=== PATIENT | male | born 1945 | race Caucasian/White ===

== ENCOUNTER 2016-12-14 07:36 | Day surgery (SDC) | payer MEDICARE, BC ==
[2016-12-13 09:59] VITALS: BMI 26.2
[~2016-12-14 07:36] MED LIST: DEXAMETHASONE SOD PHOSPHATE 10 MG/ML 1 ML VIAL IV ONE; LACTATED RINGERS 1,000 ML IV ONE; LIDOCAINE 1% 20 ML VIAL (10MG/ML) FOR IV START INTRADERMA PRN; MIDAZOLAM 2 MG/2 ML VIAL IV PRN; ONDANSETRON 4 MG/2 ML VIAL IVP ONE; SCOPOLAMINE 1.5MG/72HR PATCH TRANSDERM ONE
[2016-12-14 08:36] VITALS: RESP 18; TEMP 98.1
[2016-12-14] MEDS: CYCLOPENTOLATE 1% OPHTH SOLN 2 ML BTL OP ONE ×3 (08:36→08:54)
[2016-12-14] MEDS: FLURBIPROFEN 0.03% OPHTH DROPS 2.5 ML BTL OP ONE ×3 (08:40→08:56)
[2016-12-14] MEDS: PHENYLEPHRINE 10% OPHTH DROPS 5 ML BTL OP ONE ×3 (08:43→08:58)
[2016-12-14] MEDS ORDERED: LIDOCAINE 1% 20 ML VIAL (10MG/ML) FOR IV START INTRADERMA ONE (08:48)
[2016-12-14] MEDS ORDERED: LIDOCAINE 1% INJ 10MG/ML (20 ML MDV) ONE (08:58)
[2016-12-14] MEDS ORDERED: PROPOFOL 10 MG/ML 20 ML VIAL IV ONE (08:58)
[2016-12-14] MEDS ORDERED: EPINEPHrine (PF) 0.5 ML in BALANCED SALT IRRIG SOLN COMB2 500 ML IRRIGATION ONE (09:07)
[2016-12-14] MEDS ORDERED: HYALURONATE SODIUM INTRAOCULAR 1 EACH SYRINGE (10MG/ML) INTRAOCULA ONE (09:09)
[2016-12-14] MEDS ORDERED: BALANCED SALT IRRIG SOLN COMB2 15 ML IRRIG.SOLN INTRAOCULA ONE (09:09)
[2016-12-14 09:28] VITALS: PULSE 70
--- NOTE | 2016-12-14 09:32 | P.OP ---
Date of Procedure: 12/14/16 Procedure(s) Performed: PREOPERATIVE DIAGNOSIS: Cataract, left eye. POSTOPERATIVE DIAGNOSIS: Cataract, left eye. OPERATION: Phacoemulsification cataract, left eye. DESCRIPTION OF PROCEDURE: The patient was taken to the preoperative holding area. Intravenous Propofol was given so as to bring about adequate sedation. The following mixture was given for local anesthesia: 5 mL of 2% lidocaine, 5 mL of 0.75% Marcaine, and 1 mL of Wydase. Approximately 4 mL was injected in the retrobulbar space of the surgical eye. Additional 1 mL was then directed to the temporal area of the surgical eye. This was performed to allow adequate neurological block of the facial muscles. The patient was revived and then taken into the operative room. The patient was prepped and draped in the usual sterile manner for the operative eye. A lid speculum was put into position. The conjunctiva was resected back from the limbus in the 12 o'clock position. Bleeding was controlled with electrocautery. A #69 blade was then used and a half-thickness scleral incision approximately 1-mm posterior to the limbus was made on bare sclera. This was shelved in the clear cornea using a crescent knife. Next a 15-degree blade was used to make a stab incision at the 3 o' clock position at the corneolimbal interface. Keratome blade was then used and the superior wound was extended into the anterior chamber. Viscoelastic was injected into the anterior chamber and to maintain its form. Next, a cystotome was used and a continuous anterior capsulotomy was made without difficulty. Hydrodissection using a blunt cannula and BSS was performed. Phaco probe was then employed and a groove extending from 12 to 6 o'clock in the lens was created. A Rich wand was used through the stab incision so as to perform a divide and conquer technique. Next an irrigation aspiration probe was utilized and any residual cortex was removed from the eye. Again, viscoelastic was injected into the anterior chamber. An Roland posterior chamber lens implant was placed in the cartridge and injected into the anterior chamber without difficulty. The SinTransGenRxey hook was utilized to spin the lens into position and this was again performed without any difficulty. The irrigation and aspiration probe was again employed and any residual viscoelastic was removed from the eye. Then BSS was injected into the limbal stab incision and the anterior chamber re-inflated. The conjunctiva was reapproximated using electrocautery. One drop of 0.25% Timoptic was placed over the corneal along with TobraDex ophthalmic ointment. Two sterile patches and a Fernandez eye shield were taped into position. The patient was transported to the recovery room in stable condition. Pathology: none sent Condition: stable Disposition: same day
[2016-12-14 09:48] VITALS: BP 127/78
[2016-12-14] MEDS ORDERED: BUPIVACAINE (PF) 0.75% 5 ML, LIDOCAINE 4% (PF) 5 ML, HYALURONIDASE, HUMAN RECOMB 150 UNIT MISCELLANE ONE ×3 (23:00)
[2016-12-14] MEDS ORDERED: GENTAMICIN/PREDNISOL AC OPHTH OINT 3.5GM OPHTHALMIC ONE (23:00)
[2016-12-14] MEDS ORDERED: TIMOLOL 0.5% OPHTH SOLN (PF) 0.2 ML DROPERETTE OP ONE (23:00)
== END 2016-12-14 10:17 | disposition home or self-care (01) ==
LOC: OR 07:36
PROVIDERS: ATTEND Ophthalmology
DX: H26.9 Unspecified cataract (principal); I48.91 Unspecified atrial fibrillation; H40.059 Ocular hypertension, unspecified eye; Z79.82 Long term (current) use of aspirin; Z79.899 Other long term (current) drug therapy; Z95.810 Presence of automatic (implantable) cardiac defibrillator; Z88.5 Allergy status to narcotic agent; Z95.0 Presence of cardiac pacemaker
CPT/HCPCS: 66984; V2632; J2001 ×2; J3470; J0171; J2704; 99152; 99153

== ENCOUNTER 2017-01-18 09:04 | Day surgery (SDC) | payer MEDICARE, BC ==
[2017-01-14 11:42] VITALS: BMI 26.2
[~2017-01-18 09:04] MED LIST changes: +HYDROmorphone 1 MG/ML 1 ML SYRINGE IVP PRN; -LACTATED RINGERS 1,000 ML IV ONE; +LACTATED RINGERS 1,000 ML IV SCH; -LIDOCAINE 1% 20 ML VIAL (10MG/ML) FOR IV START INTRADERMA PRN; -MIDAZOLAM 2 MG/2 ML VIAL IV PRN; -SCOPOLAMINE 1.5MG/72HR PATCH TRANSDERM ONE
[2017-01-18] MEDS: PHENYLEPHRINE 10% OPHTH DROPS 5 ML BTL OP ONE ×3 (09:48→10:08)
[2017-01-18] MEDS: CYCLOPENTOLATE 1% OPHTH SOLN 2 ML BTL OP ONE ×3 (09:51→10:11)
[2017-01-18] MEDS: FLURBIPROFEN 0.03% OPHTH DROPS 2.5 ML BTL OP ONE ×3 (09:55→10:14)
[2017-01-18] MEDS ORDERED: LIDOCAINE 1% 20 ML VIAL (10MG/ML) FOR IV START INTRADERMA ONE (09:59)
[2017-01-18] MEDS ORDERED: LIDOCAINE 1% INJ 10MG/ML (20 ML MDV) ONE (10:36)
[2017-01-18] MEDS ORDERED: PROPOFOL 10 MG/ML 20 ML VIAL IV ONE (10:36)
[2017-01-18 10:39] VITALS: TEMP 97.6
[2017-01-18] MEDS ORDERED: BALANCED SALT IRRIG SOLN COMB2 15 ML IRRIG.SOLN INTRAOCULA ONE (10:39)
[2017-01-18] MEDS ORDERED: EPINEPHrine (PF) 0.5 ML in BALANCED SALT IRRIG SOLN COMB2 500 ML IRRIGATION ONE (10:40)
[2017-01-18] MEDS ORDERED: HYALURONATE SODIUM INTRAOCULAR 1 EACH SYRINGE (10MG/ML) INTRAOCULA ONE (10:40)
--- NOTE | 2017-01-18 11:01 | P.OP ---
Date of Procedure: 01/18/17 Procedure(s) Performed: PREOPERATIVE DIAGNOSIS: Cataract, right eye. POSTOPERATIVE DIAGNOSIS: Cataract, right eye. OPERATION: Phacoemulsification cataract, right eye. DESCRIPTION OF PROCEDURE: The patient was taken to the preoperative holding area. Intravenous Propofol was given so as to bring about adequate sedation. The following mixture was given for local anesthesia: 5 mL of 2% lidocaine, 5 mL of 0.75% Marcaine, and 1 mL of Wydase. Approximately 4 mL was injected in the retrobulbar space of the surgical eye. Additional 1 mL was then directed to the temporal area of the surgical eye. This was performed to allow adequate neurological block of the facial muscles. The patient was revived and then taken into the operative room. The patient was prepped and draped in the usual sterile manner for the operative eye. A lid speculum was put into position. The conjunctiva was resected back from the limbus in the 12 o'clock position. Bleeding was controlled with electrocautery. A #69 blade was then used and a half-thickness scleral incision approximately 1-mm posterior to the limbus was made on bare sclera. This was shelved in the clear cornea using a crescent knife. Next a 15-degree blade was used to make a stab incision at the 3 o' clock position at the corneolimbal interface. Keratome blade was then used and the superior wound was extended into the anterior chamber. Viscoelastic was injected into the anterior chamber and to maintain its form. Next, a cystotome was used and a continuous anterior capsulotomy was made without difficulty. Hydrodissection using a blunt cannula and BSS was performed. Phaco probe was then employed and a groove extending from 12 to 6 o'clock in the lens was created. A Rich wand was used through the stab incision so as to perform a divide and conquer technique. Next an irrigation aspiration probe was utilized and any residual cortex was removed from the eye. Again, viscoelastic was injected into the anterior chamber. An Roland posterior chamber lens implant was placed in the cartridge and injected into the anterior chamber without difficulty. The SinGiftLauncherey hook was utilized to spin the lens into position and this was again performed without any difficulty. The irrigation and aspiration probe was again employed and any residual viscoelastic was removed from the eye. Then BSS was injected into the limbal stab incision and the anterior chamber re-inflated. The conjunctiva was reapproximated using electrocautery. One drop of 0.25% Timoptic was placed over the corneal along with TobraDex ophthalmic ointment. Two sterile patches and a Fernandez eye shield were taped into position. The patient was transported to the recovery room in stable condition. Pathology: none sent Condition: stable Disposition: same day
[2017-01-18 11:29] VITALS: BP 131/75; PULSE 72; RESP 18
[2017-01-18] MEDS ORDERED: GENTAMICIN/PREDNISOL AC OPHTH OINT 3.5GM OPHTHALMIC ONE (23:00)
[2017-01-18] MEDS ORDERED: BUPIVACAINE (PF) 0.75% 5 ML, LIDOCAINE 4% (PF) 5 ML, HYALURONIDASE, HUMAN RECOMB 150 UNIT MISCELLANE ONE ×3 (23:00)
[2017-01-18] MEDS ORDERED: TIMOLOL 0.5% OPHTH SOLN (PF) 0.2 ML DROPERETTE OP ONE (23:00)
== END 2017-01-18 11:45 | disposition home or self-care (01) ==
LOC: OR 09:04
PROVIDERS: ATTEND Ophthalmology
DX: H25.11 Age-related nuclear cataract, right eye (principal); I48.91 Unspecified atrial fibrillation; I49.9 Cardiac arrhythmia, unspecified; Z95.810 Presence of automatic (implantable) cardiac defibrillator; Z79.82 Long term (current) use of aspirin; Z79.899 Other long term (current) drug therapy; Z88.5 Allergy status to narcotic agent; Z87.891 Personal history of nicotine dependence
CPT/HCPCS: 66984; V2632; J2001 ×2; J3470; J0171; J2704; 99152; 99153

== ENCOUNTER → 2018-04-14 | Outpatient (CLI) | payer MEDICARE, BC ==
--- NOTE | 2018-04-14 10:45 | CT ---
EXAMINATION TYPE: CT lumbar spine wo con DATE OF EXAM: 04/14/2018 COMPARISON: NONE HISTORY: Low back pain, DDD CT DLP: 619.80 mGycm Automated exposure control for dose reduction was used. An unenhanced CT of the lumbar spine was performed. Bone and soft tissue window settings are submitt ed as well as coronal and sagittal reconstructions. FINDINGS: Lumbar vertebral bodies show preserved height and alignment, bone mineralization. Loss of disc height present at the intervertebral levels is present, there is vacuum phenomenon with inferior endplate S chmorl's node at the L3-4 level. L1-L2: Mild posterior disc bulge causes slight anterior mass effect on the thecal sac. No significant foraminal encroachment or central stenosis. L2-L3: Posterior broad-based disc bulge causes anterior mass effect on the thecal sac. No significant foraminal encroachment or central stenosis. L3-L4: Broad-based posterior disc bulge causes anterior mass effect on the thecal sac, only mild cent ral canal stenosis, lateral extension endplate disc complex causes some foraminal encroachment. There is facet arthropathy with hypertrophic change of the ligamentum flavum encroaching on the lateral re cesses. L4-L5: Hypertrophic change of the ligamentum flavum, facet arthropathy with circumferential posterior disc bulge results in severe central canal stenosis, lateral extension of endplate disc complex encr oaches on the foramina greater on the left than on the right. L5-S1: Broad-based posterior disc bulge likely contacts the proximal S1 nerve roots and anterior thec al sac, circumferential extension of endplate disc complex encroaches mildly on the foramina, no sign ificant spinal stenosis. Facet arthropathy changes present. IMPRESSION: No paraspinal masses are identified. Lumbar segments are intact. Degenerative disc disease, facet ar thropathy, spinal stenosis or foraminal encroachment as described. Findings are similar to prior exam .
== END | disposition home or self-care (01) ==
LOC: RADCTMAIN 08:44
PROVIDERS: ATTEND Physical Medicine & Rehabilitation
DX: M51.36 Other intervertebral disc degeneration, lumbar region (principal); M46.96 Unspecified inflammatory spondylopathy, lumbar region
CPT/HCPCS: 72131

== ENCOUNTER → 2018-06-16 | Outpatient (CLI) | payer MEDICARE, BC ==
--- NOTE | 2018-06-19 09:25 | CT ---
EXAMINATION TYPE: CT chest wo con DATE OF EXAM: 06/16/2018 COMPARISON: None HISTORY: productive cough X 6 months, pt states exposure to asbestos years ago. CT DLP: 384.[address] of the chest was performed with lung and mediastinal window settings submitted. The la ck of contrast limits evaluation of the vascular, mediastinal and parenchymal structures including th e upper abdomen. LUNGS: Mild COPD. The lungs are clear and free of infiltrate. No atelectasis. No pulmonary nodule or mass is detected. No pleural effusion. No CT evidence of interstitial lung disease. MEDIASTINUM/UNA: Thoracic aorta is of normal caliber with limited evaluation given lack of contrast . The heart is mildly enlarged. Pacer device is in place No evidence for mediastinal mass. No lym ph nodes greater than 1cm. UPPER ABDOMEN: No significant abnormality is seen. OTHER: Mild degenerative change thoracic spine. IMPRESSION: 1. Mild COPD. No evidence for infiltrate, nodule or mass.
== END | disposition home or self-care (01) ==
LOC: RADCTMAIN 17:06
PROVIDERS: ATTEND Family Medicine
DX: J44.9 Chronic obstructive pulmonary disease, unspecified (principal)
CPT/HCPCS: 71250

== ENCOUNTER → 2018-07-04 | Outpatient (CLI) | payer MEDICARE, BC | END | disposition home or self-care (01) | LOC: CPPFTMAIN 13:19 | PROVIDERS: ATTEND Family Medicine | DX: J44.9 Chronic obstructive pulmonary disease, unspecified (principal) | CPT/HCPCS: 94060; 94726; 94729 ==

== ENCOUNTER 2019-01-02 17:47 | Emergency (ER) | payer BC, MEDICARE ==
[2019-01-02 17:53] VITALS: TEMP 98.1
[2019-01-02] MEDS ORDERED: DEXAMETHASONE 4 MG TAB PO STA (20:03)
[2019-01-02] MEDS ORDERED: diphenhydrAMINE 50 MG CAP PO STA (20:03)
[2019-01-02] MEDS ORDERED: ONDANSETRON ODT 4 MG TAB PO STA (20:03)
[2019-01-02] MEDS ORDERED: DIAZEPAM 5 MG TAB PO STA (20:03)
[2019-01-02] MEDS ORDERED: cloNIDine 0.3 MG/24HR PATCH TRANSDERM STA (20:03)
[2019-01-02] MEDS ORDERED: IBUPROFEN 800 MG TAB PO STA (20:03)
[2019-01-02 20:54] LABS: Appearance,Urine Clear (Clear); Bilirubin,Urine Negative (Negative); Blood,Urine Negative (Negative); Color,Urine Yellow; Glucose,Urine (UA) Negative (Negative); Ketones,Urine Negative (Negative); Leukocyte Esterase,Urine Negative (Negative); Nitrite,Urine Negative (Negative); Protein,Urine Negative (Negative); Specific Gravity,Urine 1.019 (1.001-1.035); Urobilinogen,Urine <2.0 mg/dL (<2.0)
[2019-01-02 21:03] LABS: Albumin 3.4 g/dL (3.5-5.0); Calcium 9.1 mg/dL (8.4-10.2); Potassium 4.9 mmol/L (3.5-5.1); Total Bilirubin 0.4 mg/dL (0.2-1.3); Total Protein 6.2 g/dL (6.3-8.2)
[2019-01-02] MEDS ORDERED: ONDANSETRON 4 MG/2 ML VIAL IVP STA (21:05)
[2019-01-02] MEDS ORDERED: HYDROmorphone 0.5 MG/0.5 ML SYRINGE IVP STA (21:05)
--- NOTE | 2019-01-02 21:07 | ED ---
Male Urogenital HPI - General Chief complaint: Urogenital Stated complaint: post back surgery/frequent urination Time Seen by Provider: 01/02/19 19:44 Source: patient Mode of arrival: ambulatory Limitations: physical limitation - History of Present Illness Initial comments: 73-year-old male with past medical history of prostate disease and recent laminectomy performed 8 days ago presents today for chief complaint of low back pain and frequency. Patient states that he has had increased frequency since his discharge from [facility] after laminectomy surgery from L2 to L3 and L3 to L4. Patient states surgeries performed by Dr. Paul. She states that he has to urinate every hour which caused him to get up and down from his bed often. He states this is causing increased back pain. Patient denies any fever, chills, purulent drainage, urinary retention, loss of bowel bladder control, numbness tingling or paresthesias of the lower extremity. Patient does have baseline right foot drop, he states this is improved since the surgery. Patient contacted his surgeon about complaints of urgency and he was instructed to come to the emergency department for a bladder scan. Upon arrival patient is afebrile appearing well he is ambulatory without difficulty there is evidence of right foot drop. Remaining review of systems negative, Patient denies any recent shortness of breath, chest pain, back pain, abdominal pain, nausea or vomiting, numbness or tingling, dysuria or hematuria, constipation or diarrhea, headaches or visual changes, or any other complaints. - Related Data Home Medications Medication Instructions Recorded Confirmed Carvedilol [Coreg] 6.25 mg PO BID 12/13/16 01/02/19 Flecainide [Tambocor] 50 mg PO BID 12/13/16 01/02/19 HYDROcodone/APAP 7.5-325MG [[place] 1 tab PO BID PRN 01/02/19 01/02/19 7.5-325] Linaclotide [Linzess] 290 mcg PO DAILY 01/02/19 01/02/19 Methocarbamol [Robaxin] 500 mg PO Q6HR PRN 01/02/19 01/02/19 Allergies Allergy/AdvReac Type Severity Reaction Status Date / Time morphine AdvReac Nausea & Verified 01/02/19 20:46 Vomiting Review of Systems ROS Statement: Those systems with pertinent positive or pertinent negative responses have been documented in the HPI. ROS Other: All systems not noted in ROS Statement are negative. Past Medical History Past Medical History: Atrial Fibrillation, Cancer, Heart Failure, Eye Disorder, Hearing Disorder / Deafness, Osteoarthritis (OA) Additional Past Medical History / Comment(s): skin ca on nose (basal cell carcinoma), hx of pancreatitis, hx. of kidney stones. Catatract L eye, headaches , pacemaker History of Any Multi-Drug Resistant Organisms: None Reported Past Surgical History: AICD, Back Surgery, Heart Catheterization Additional Past Surgical History / Comment(s): Colonoscopy, Vasectomy. Past Anesthesia/Blood Transfusion Reactions: No Reported Reaction Type of Cardiac Device: AICD Device Placement Date:: 1999 Past Psychological History: No Psychological Hx Reported Smoking Status: Never smoker Past Alcohol Use History: Rare Past Drug Use History: None Reported - Past Family History Mother Family Medical History: CVA/TIA General Exam - General Exam Comments Initial Comments: General: The patient is awake and alert, in no distress, and does not appear acutely ill. Eye: Pupils are equal, round and reactive to light, extra-ocular movements are intact. No nystagmus. There is normal conjunctiva bilaterally. No signs of icterus. Ears, nose, mouth and throat: There are moist mucous membranes and no oral lesions. Neck: The neck is supple, there is no tenderness or JVD. Cardiovascular: There is a regular rate and rhythm. No murmur, rub or gallop is appreciated. Respiratory: Lungs are clear to auscultation, respirations are non-labored, breath sounds are equal. No wheezes, stridor, rales, or rhonchi. Gastrointestinal: Soft, non-distended, non-tender abdomen without masses or organomegaly noted. There is no rebound or guarding present. Musculoskeletal: Normal ROM at the lumbar spine, with tenderness with all range of motion. Negative straight leg raise bilaterally Strength 5/5 of the lower extremities equal bilaterally. Sensation intact of the lower extremities equal bilaterally, no saddle paresthesias or anesthesia. Radial pulses equal bilaterally 2+. Rectal exam performed revealing normal tone. No fasciculations or myoclonus noted at the lower extremities. Right foot drop noted, patient able to ambulate without difficulty. Neurological: A&O x 3. CN II-XII intact, There are no obvious motor or sensory deficits. Coordination appears grossly intact. Speech is normal. Skin: Skin is warm and dry and no rashes or lesions are noted. Surgical incisions have no erythema, there is no drainage. Bandage that is applied over area clean and dry and intact. No tenderness or warmth to palpation. Psychiatric: Cooperative, appropriate mood & affect, normal judgment. Limitations: physical limitation Course Vital Signs 01/02/19 01/02/19 17:50 21:32 Temperature 98.1 F Pulse Rate 89 80 Respiratory 18 16 Rate Blood Pressure 148/81 158/88 O2 Sat by Pulse 98 98 Oximetry Medical Decision Making - Medical Decision Making 73-year-old male presenting for back pain and urinary urgency. Bladder scan was obtained post varied, revealing 133 mL. I did contact patient's surgeon Dr. Paul sharing bladder scan is also palpation presentation, physical examination findings. He states if patient's does not have leukocytosis and incision looks well pt is stable for discharge with outpatient follow-up. Patient was given Dilaudid for pain management, he states this helped pain. Patient does have history of elevated PSA and he is following this with Dr. Sahni, urology Prostate was enlarged on digital rectal examination. At this time do feel patient urgency may be related to enlargement of prostate. Patient does not have any signs concerning for cauda equina. Good rectal tone, full strength of lower extremities, ambulatory without difficulty and patient states there is improvement of his right foot drop. At this time. There is no signs of infection, no signs concerning for neurovascular compromise and patient is appearing well improvement of pain. There is no evidence of urinary retention, the patient is stable for discharge with both urology and surgical follow-up. Patient is agreeable plan discharge. Patient denies questions at this time. Patient discharged. Well, appears happy with plan and discharged. - Lab Data Result diagrams: 01/02/19 20:32 01/02/19 20:32 Lab Results 01/02/19 01/02/19 01/02/19 Range/Units 20:32 20:32 20:32 WBC 7.3 (3.8-10.6) k/uL RBC 4.17 L (4.30-5.90) m/uL Hgb 13.4 (13.0-17.5) gm/dL Hct 40.3 (39.0-53.0) % MCV 96.8 (80.0-100.0) fL MCH 32.1 (25.0-35.0) pg MCHC 33.1 (31.0-37.0) g/dL RDW 13.6 (11.5-15.5) % Plt Count 309 (150-450) k/uL Neutrophils % 69 % Lymphocytes % 18 % Monocytes % 8 % Eosinophils % 2 % Basophils % 0 % Neutrophils # 5.0 (1.3-7.7) k/uL Lymphocytes # 1.3 (1.0-4.8) k/uL Monocytes # 0.6 (0-1.0) k/uL Eosinophils # 0.2 (0-0.7) k/uL Basophils # 0.0 (0-0.2) k/uL Sodium 136 L (137-145) mmol/L Potassium 4.9 (3.5-5.1) mmol/L Chloride 102 (98-107) mmol/L Carbon Dioxide 27 (22-30) mmol/L Anion Gap 7 mmol/L BUN 27 H (9-20) mg/dL Creatinine 1.14 (0.66-1.25) mg/dL Est GFR (CKD-EPI)AfAm 73 (>60 ml/min/1.73 sqM) Est GFR (CKD-EPI)NonAf 63 (>60 ml/min/1.73 sqM) Glucose 112 H (74-99) mg/dL Calcium 9.1 (8.4-10.2) mg/dL Total Bilirubin 0.4 (0.2-1.3) mg/dL AST 21 (17-59) U/L ALT 33 (21-72) U/L Alkaline Phosphatase 45 (38-126) U/L Total Protein 6.2 L (6.3-8.2) g/dL Albumin 3.4 L (3.5-5.0) g/dL Urine Color Yellow Urine Appearance Clear (Clear) Urine pH 6.0 (5.0-8.0) Ur Specific [place] 1.019 (1.001-1.035) Urine Protein Negative (Negative) Urine Glucose (UA) Negative (Negative) Urine Ketones Negative (Negative) Urine Blood Negative (Negative) Urine Nitrite Negative (Negative) Urine Bilirubin Negative (Negative) Urine Urobilinogen <2.0 (<2.0) mg/dL Ur Leukocyte Esterase Negative (Negative) Disposition Clinical Impression: Urinary frequency, History of BPH, Postoperative back pain Disposition: HOME SELF-CARE Condition: Good Additional Instructions: Please use previously prescribed medication as discussed. Please follow-up with family doctor in the next 2 days, please follow-up with surgeon as scheduled. Please follow-up with urology as discussed, Dr. Ohara. Please return to emergency room if the symptoms increase or worsen or for any other concerns. Is patient prescribed a controlled substance at d/c from ED?: No Referrals: Carlton Gar Jr, [Primary Care Provider] - 1-2 days Time of Disposition: 21:38
[2019-01-02 21:16] LABS: Basophils % (A) 0 %; Eosinophils # (A) 0.2 k/uL (0-0.7); Eosinophils % (A) 2 %; HCT 40.3 % (39.0-53.0); HGB 13.4 gm/dL (13.0-17.5); Lymphocytes # (A) 1.3 k/uL (1.0-4.8); Lymphocytes % (A) 18 %; MCH 32.1 pg (25.0-35.0); MCHC 33.1 g/dL (31.0-37.0); MCV 96.8 fL (80.0-100.0); Mean Platelet Volume 6.3; Monocytes # (A) 0.6 k/uL (0-1.0); Monocytes % (A) 8 %; Neutrophils % (A) 69 %; Platelet Count 309 k/uL (150-450); RBC 4.17 m/uL (4.30-5.90); RDW 13.6 % (11.5-15.5); WBC 7.3 k/uL (3.8-10.6)
[2019-01-02 21:33] VITALS: BP 158/88; PULSE 80; RESP 16
== END 2019-01-02 21:58 | disposition home or self-care (01) ==
LOC: EC 17:47
DX: G89.18 Other acute postprocedural pain (principal); M54.5 Low back pain; R35.0 Frequency of micturition; M21.371 Foot drop, right foot; I48.91 Unspecified atrial fibrillation; I50.9 Heart failure, unspecified; Z87.438 Personal history of other diseases of male genital organs; Z98.890 Other specified postprocedural states; Z85.828 Personal history of other malignant neoplasm of skin; Z95.810 Presence of automatic (implantable) cardiac defibrillator; Z95.818 Presence of other cardiac implants and grafts; Z79.899 Other long term (current) drug therapy; Z88.5 Allergy status to narcotic agent; Z53.8 Procedure and treatment not carried out for other reasons
CPT/HCPCS: 99284; 96374; 96375; 51798; 36415; 80053; 85025; 81003; J2405; J1170

== ENCOUNTER 2020-02-11 10:00 | Day surgery (SDC) | payer MEDICARE ==
[2020-02-06 15:22] VITALS: BMI 25.8
[~2020-02-11 10:00] MED LIST changes: -DEXAMETHASONE SOD PHOSPHATE 10 MG/ML 1 ML VIAL IV ONE; -HYDROmorphone 1 MG/ML 1 ML SYRINGE IVP PRN; +LIDOCAINE 1% (10MG/ML) FOR IV START INTRADERMA PRN; -ONDANSETRON 4 MG/2 ML VIAL IVP ONE
[2020-02-11 10:52] VITALS: TEMP 98.3
[2020-02-11] MEDS ORDERED: PROPOFOL 10 MG/ML 20 ML VIAL IV ONE (11:18)
--- NOTE | 2020-02-11 11:38 | P.PCN ---
Date of Procedure: 02/11/20 Procedure(s) Performed: PREOPERATIVE DIAGNOSIS: GERD, screening POSTOPERATIVE DIAGNOSIS: Mild gastritis, long segment Canada's esophagus, diverticulosis PROCEDURE: 1. EGD with biopsy 2. Colonoscopy ANESTHESIA: MAC SURGEON: Keegan Spence M.D. SPECIMENS: Antrum, Canada's esophagus ENDOSCOPIC PROCEDURE: The patient was on the endoscopy table in the left decubitus position. The Olympus gastroscope was inserted into the oropharynx and passed under direct visualization to the region of the third portion of the duodenum. From that point the scope was slowly withdrawn inspecting all surfaces carefully. There were no neoplastic inflammatory or polypoid lesions throughout the duodenum. The pylorus was widely patent. The stomach was carefully inspected. There was mild gastritis present. A biopsy of the antrum took place to rule out H. pylori. Retroflexion revealed a normal hiatus. The esophagus was then carefully examined. There was noted to be a long segment of Canada's esophagus. No inflammatory changes however. The Canada's esophagus extended approximately 5 cm superior to the GE junction. No stricture was seen. The patient was kept on the endoscopy table in the left decubitus position. The Olympus colonoscope was inserted into the anus and passed under direct visualization to the base of the cecum. The appendiceal orifice was visualized. From that point the scope was slowly withdrawn inspecting all surfaces carefully. There were no neoplastic inflammatory or polypoid lesions throughout the cecum, ascending, transverse, descending, sigmoid and rectum. There was mild left-sided diverticulosis noted. Digital rectal examination was normal. The patient was taken to the recovery room in stable condition per anesthesia guidelines. RECOMMENDATIONS: Increase antiacid therapy. Await biopsy results. Will require follow-up EGD in 2-3 years. Disposition: same day
[2020-02-11 12:03] VITALS: BP 135/85; PULSE 82; RESP 16
== END 2020-02-11 12:30 ==
LOC: ORWHC2ENDO 10:00
PROVIDERS: ATTEND Surgery
DX: K22.70 Barrett's esophagus without dysplasia (principal); K29.50 Unspecified chronic gastritis without bleeding; K21.9 Gastro-esophageal reflux disease without esophagitis; Z12.11 Encounter for screening for malignant neoplasm of colon; K57.30 Diverticulosis of large intestine without perforation or abscess without bleeding; I48.91 Unspecified atrial fibrillation; I25.10 Atherosclerotic heart disease of native coronary artery without angina pectoris; N40.0 Benign prostatic hyperplasia without lower urinary tract symptoms; Z88.5 Allergy status to narcotic agent; Z79.899 Other long term (current) drug therapy; Z85.828 Personal history of other malignant neoplasm of skin; Z87.19 Personal history of other diseases of the digestive system; Z87.442 Personal history of urinary calculi; H40.9 Unspecified glaucoma; Z95.810 Presence of automatic (implantable) cardiac defibrillator; Z98.890 Other specified postprocedural states; Z98.52 Vasectomy status; Z98.41 Cataract extraction status, right eye; Z98.42 Cataract extraction status, left eye; Z97.2 Presence of dental prosthetic device (complete) (partial); Z91.89 Other specified personal risk factors, not elsewhere classified; Z82.3 Family history of stroke; Z82.49 Family history of ischemic heart disease and other diseases of the circulatory system
CPT/HCPCS: 88305; 43239; J2704; G0121

== ENCOUNTER → 2021-05-21 | Outpatient (CLI) | payer MEDICARE ==
--- NOTE | 2021-05-22 09:34 | CT ---
EXAMINATION TYPE: CT lumbar spine w con DATE OF EXAM: 05/21/2021 COMPARISON: 04/14/2018 HISTORY: Chronic low back pain. CT DLP: 839 mGycm CONTRAST: CT scan of the lumbar is performed with IV Contrast, patient injected with 80ml mL of Isovue 300. TECHNIQUE: CT of the lumbar spine is performed on a spiral scan at 3 mm thick sections. Reconstructed images are performed in the coronal and sagittal planes. FINDINGS: Vertebral body heights are preserved. There is loss of disc space posteriorly at L4-5. Mild disc spac e narrowing is present L5-S1 and L2-3. Moderate posterior disc space narrowing is present L3-4. Post laminectomy changes are present L3-L5. T12-L1: No focal disc herniation or significant disc bulge is evident. No spinal canal stenosis or neural foraminal stenosis is present. L1-L2: No focal disc herniation or significant disc bulge is evident. No spinal canal stenosis or n eural foraminal stenosis is present L2-L3: Disc bulge is present anterior thecal sac flattening. No AP spinal canal stenosis is present. Neural foramen are patent L3-L4: No focal disc herniation or significant disc bulge is evident. No spinal canal stenosis or n eural foraminal stenosis is present L4-L5: There may be some disc uncovering at L4-5. Very minimal grade 1 anterolisthesis of L4 on L5 ma y be present. No spinal canal stenosis present. Foramina are patent L5-S1: No focal disc herniation or significant disc bulge is evident. No spinal canal stenosis or n eural foraminal stenosis is present IMPRESSION: 1. Post laminectomy changes L3-L5. 2. Degenerative disc changes as discussed above.
== END | disposition home or self-care (01) ==
LOC: RADCTMAIN 17:48
PROVIDERS: ATTEND Family Medicine
DX: M51.26 Other intervertebral disc displacement, lumbar region (principal); M43.16 Spondylolisthesis, lumbar region; Z98.1 Arthrodesis status
CPT/HCPCS: 82565; 84520; 72132; 36415; Q9967

== ENCOUNTER 2023-06-21 10:20 | Day surgery (SDC) | payer MEDICARE ==
[2023-05-02 08:55] VITALS: BMI 26.4
[~2023-06-21 10:20] MED LIST changes: +ONDANSETRON 4 MG/2 ML VIAL IVP PRN
[2023-06-21 11:05] VITALS: TEMP 97.4
[2023-06-21] MEDS ORDERED: LIDOCAINE 2% INJ 20 MG/ML (2 ML VIAL) ONE (11:15)
[2023-06-21] MEDS ORDERED: PROPOFOL 10 MG/ML 20 ML VIAL IV ONE (11:15)
--- NOTE | 2023-06-21 11:24 | P.GSHP ---
History of Present Illness H&P Date: 06/21/23 Chief Complaint: GERD 77-year-old male here for upper endoscopy. Patient with history of Canada's esophagus. Last EGD 3 years ago. He remains on omeprazole daily. Past Medical History Past Medical History: Atrial Fibrillation, Cancer, Heart Failure, Eye Disorder, GERD/Reflux, Osteoarthritis (OA) Additional Past Medical History / Comment(s): BASAL CELL SKIN CANCER, HX PANCREATITIS, KIDNEY STONES, HEADACHES, ASBESTOSIS, BACK PAIN, BPH, COUGH, NEUROPATHY LEG, RECEIVING PHYSICAL THERAPY. back steroid injection 03/30/23 History of Any Multi-Drug Resistant Organisms: None Reported Past Surgical History: AICD, Back Surgery, Heart Catheterization, Pacemaker Additional Past Surgical History / Comment(s): Colonoscopy, Vasectomy., Laminectomy (Nov 2018). states pacemaker/AICD replaced x3-had infection with the 3rd one and had wiring defect ([facility]) ([facility]), 4 spots on head removed basilar skin ca. 04/28/23. neck fusion cervical 04/30/2022 Past Anesthesia/Blood Transfusion Reactions: Previous Problems w/ Anesthesia, Postoperative Nausea & Vomiting (PONV) Type of Cardiac Device: Permanent Pacemaker, AICD Device Placement Date:: 2021 Smoking Status: Former smoker - Past Family History Mother Family Medical History: CVA/TIA Medications and Allergies Home Medications Medication Instructions Recorded Confirmed Type carvediloL [Coreg] 6.25 mg PO BID 12/13/16 06/21/23 History Latanoprost/Pf [Latanoprost 0.005% 1 drop BOTH EYES HS 02/06/20 06/21/23 History Eye Drop] Omeprazole [PriLOSEC] 40 mg PO AC-BRKFST #120 cap 02/11/20 06/21/23 Rx Alfuzosin HCl [Alfuzosin HCl ER] 10 mg PO DAILY 05/02/23 06/21/23 History Aspirin [Adult Low Dose Aspirin EC] 81 mg PO DAILY 05/02/23 06/17/23 History Finasteride [Proscar] 5 mg PO DAILY 05/02/23 06/21/23 History Acetaminophen [Tylenol Arthritis] 1,300 mg PO BID 06/17/23 06/21/23 History Multivit-Min/FA/Lycopen/Lutein 1 each PO DAILY 06/17/23 06/17/23 History [Centrum Silver Men Tablet] Allergies Allergy/AdvReac Type Severity Reaction Status Date / Time ALEJANDRO Inhibitors AdvReac Unknown Cough Verified 06/21/23 10:45 losartan [From Cozaar] AdvReac Unknown Cough Verified 06/21/23 10:45 morphine AdvReac Nausea & Verified 06/21/23 10:45 Vomiting Surgical - Exam Vital Signs Temp Pulse Resp BP Pulse Ox 97.4 F L 78 18 143/70 98 06/21/23 10:51 06/21/23 10:51 06/21/23 10:51 06/21/23 10:51 06/21/23 10:51 Physical exam: General: Well-developed, well-nourished HEENT: Normocephalic, sclerae nonicteric Abdomen: Nontender, nondistended Extremities: No edema Neuro: Alert and oriented Assessment and Plan (1) GERD (gastroesophageal reflux disease) Narrative/Plan: Will proceed with upper endoscopy at this time Current Visit: Yes Status: Acute Code(s): K21.9 - GASTRO-ESOPHAGEAL REFLUX DISEASE WITHOUT ESOPHAGITIS SNOMED Code(s): 230915760
--- NOTE | 2023-06-21 11:32 | P.PCN ---
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 Spence Specimens: Antrum, polyp, [place]'s Endoscopic Procedure: The patient was on the endoscopy table in the left decubitus position. The Olympus gastroscope was inserted into the oropharynx and passed under direct visualization to the region of the third portion of the duodenum. From that point the scope was slowly withdrawn inspecting all surfaces carefully. There were no neoplastic inflammatory or polypoid lesions throughout the duodenum. The pylorus was widely patent. The stomach was c arefully inspected. There was mild gastritis present. A biopsy of the antrum took place to rule out H. pylori. The patient had a few small polyps the largest one was biopsied using the cold biopsy forceps. Retroflexion revealed a normal hiatus. The esophagus was then carefully examined. There was once again noted to be a long segment of [place]'s esophagus. No significant inflammation ulceration or nodularity was seen. Multiple biopsies were taken. The patient was then taken to the recovery room in stable condition per anesthesia guidelines. Recommendations: Await biopsy results. Continue antiacids.
[2023-06-21 11:57] VITALS: BP 115/74; PULSE 67; RESP 18
== END 2023-06-21 12:15 | disposition home or self-care (01) ==
LOC: ORWHC2ENDO 10:20
PROVIDERS: ATTEND Surgery
DX: K29.50 Unspecified chronic gastritis without bleeding (principal); K21.9 Gastro-esophageal reflux disease without esophagitis; K22.70 Barrett's esophagus without dysplasia; K31.7 Polyp of stomach and duodenum; I50.9 Heart failure, unspecified; Z79.899 Other long term (current) drug therapy; I48.91 Unspecified atrial fibrillation; Z87.442 Personal history of urinary calculi; Z95.810 Presence of automatic (implantable) cardiac defibrillator; Z87.891 Personal history of nicotine dependence; Z82.3 Family history of stroke; Z98.2 Presence of cerebrospinal fluid drainage device
CPT/HCPCS: 88305; 43239; J2704; J2001

== ENCOUNTER → 2024-02-10 | Outpatient (CLI) | payer MEDICARE ==
[2024-02-11 04:23] LABS: Blood Urea Nitrogen 18.3 mg/dL (9.0-27.0); Calcium 9.4 mg/dL (8.7-10.3); Carbon Dioxide 25.9 mmol/L (21.6-31.8); Chloride 105 mmol/L (96-109); Glucose 93 mg/dL (70-110); Potassium 4.7 mmol/L (3.5-5.5); Sodium 142 mmol/L (135-145)
[2024-02-11 05:01] LABS: Basophils # (A) 0.04 X 10*3/uL (0.00-0.10); Basophils % (A) 0.7 %; Eosinophils # (A) 0.21 X 10*3/uL (0.04-0.35); Eosinophils % (A) 3.8 %; HCT 38.8 % (39.6-50.0); HGB 12.7 g/dL (13.0-17.0); Lymphocytes # (A) 1.66 X 10*3/uL (0.90-5.00); Lymphocytes % (A) 29.8 %; MCH 32.2 pg (27.0-32.0); MCHC 32.7 g/dL (32.0-37.0); MCV 98.2 FL (80.0-97.0); Mean Platelet Volume 10.3 FL (9.5-12.2); Monocytes # (A) 0.55 X 10*3/uL (0.20-1.00); Monocytes % (A) 9.9 %; NRBC Per 100 WBC 0 X 10*3/uL (0.00-0.01); Neutrophils # (A) 3.09 X 10*3/uL (1.80-7.70); Neutrophils % (A) 55.4 %; Platelet Count 210 X 10*3/uL (140-440); RBC 3.95 X 10*6/uL (4.40-5.60); RDW 14.2 % (11.5-14.5); WBC 5.57 X 10*3/uL (4.50-10.00)
== END | disposition home or self-care (01) ==
LOC: LABPAT 14:26
PROVIDERS: ATTEND Urology
DX: Z01.812 Encounter for preprocedural laboratory examination (principal); N40.1 Benign prostatic hyperplasia with lower urinary tract symptoms
CPT/HCPCS: 80048; 85025

== ENCOUNTER 2024-02-16 10:13 | Day surgery (SDC) | payer MEDICARE ==
--- NOTE | 2024-02-15 19:30 | P.GSHP ---
History of Present Illness H&P Date: 02/15/24 Chief Complaint: Lower urinary tract symptoms The patient is an 78-year-old white male with a history of BPH. He was placed on tamsulosin in early 2019. This was changed to alfuzosin in early 2021, and finasteride was prescribed and January 2023 to be taken along with the alfuzosin. However, the patient continues to experience a diminished urinary stream, nocturia, and urinary urgency. He empties his bladder incompletely. He was offered the options of continued medical therapy versus a minimally invasive surgery such as UroLift versus a transurethral resection of prostate (TURP). The pros and cons of each were reviewed in detail, and the patient has elected to undergo the latter. - Genitourinary (Male) Genitourinary: Reports as per HPI Past Medical History Past Medical History: Atrial Fibrillation, Cancer, Heart Failure, Eye Disorder, GERD/Reflux, Hearing Disorder / Deafness, Osteoarthritis (OA), Prostate Disorder Additional Past Medical History / Comment(s): BASAL CELL SKIN CANCER, HX PANCREATITIS, KIDNEY STONES, HEADACHES, ASBESTOSIS, BACK PAIN, BPH, COUGH, NEUROPATHY LEG, RECEIVING PHYSICAL THERAPY. back steroid injection 03/30/23. tinnitus. . History of Any Multi-Drug Resistant Organisms: None Reported Past Surgical History: AICD, Back Surgery, Heart Catheterization, Pacemaker Additional Past Surgical History / Comment(s): Colonoscopy, Vasectomy., Laminectomy (Nov 2018). states pacemaker/AICD replaced x3-had infection with the 3rd one and had wiring defect ([facility]) ([employer]), 4 spots on head removed basilar skin ca. 04/28/23. neck fusion cervical 04/30/2022. Drezotomy Past Anesthesia/Blood Transfusion Reactions: Previous Problems w/ Anesthesia, Postoperative Nausea & Vomiting (PONV) Type of Cardiac Device: Permanent Pacemaker, AICD Device Placement Date:: 2021 Smoking Status: Former smoker - Past Family History Mother Family Medical History: CVA/TIA Medications and Allergies Home Medications Medication Instructions Recorded Confirmed Type carvediloL [Coreg] 6.25 mg PO BID 12/13/16 02/14/24 History Latanoprost/Pf [Latanoprost 0.005% 1 drop BOTH EYES HS 02/06/20 02/14/24 History Eye Drop] Omeprazole [PriLOSEC] 40 mg PO AC-BRKFST #120 cap 02/11/20 02/14/24 Rx Alfuzosin HCl [Alfuzosin HCl ER] 10 mg PO HS 05/02/23 02/14/24 History Aspirin [Adult Low Dose Aspirin EC] 81 mg PO DAILY 05/02/23 02/14/24 History Finasteride [Proscar] 5 mg PO HS 05/02/23 02/14/24 History Acetaminophen [Tylenol Arthritis] 650 mg PO BID 06/17/23 02/14/24 History Mv-Min/Folic/K1/Lycopen/Lutein 1 each PO DAILY 06/17/23 02/14/24 History [Centrum Silver Men Tablet] Gabapentin [Neurontin] 100 mg PO TID 02/14/24 02/14/24 History Allergies Allergy/AdvReac Type Severity Reaction Status Date / Time ALEJANDRO Inhibitors AdvReac Unknown Cough Verified 02/14/24 08:36 losartan [From Cozaar] AdvReac Unknown Cough Verified 02/14/24 08:36 morphine AdvReac Nausea & Verified 02/14/24 08:36 Vomiting Surgical - Exam - General well developed, well nourished, no distress - Respiratory normal respiratory effort - Rectum Rectum: normal sphincter tone, no masses, other (Prostate mildly enlarged but smooth) - Psychiatric oriented to time, oriented to person, oriented to place, speech is normal, memory intact Assessment and Plan (1) Benign prostatic hyperplasia with lower urinary tract symptoms Status: Acute Code(s): N40.1 - BENIGN PROSTATIC HYPERPLASIA WITH LOWER URINARY TRACT SYMP SNOMED Code(s): 990642476 Plan: Cystoscopy, bipolar transurethral resection of prostate (TURP). The procedure has been reviewed in detail with the patient and his . They have been made aware of potential risks, which include anesthesia, bleeding, infection, persistent voiding symptoms, urinary incontinence, and vesical neck contracture.
[~2024-02-16 10:13] MED LIST changes: +HYDROmorphone 0.5 MG/0.5 ML SYRINGE IVP PRN; -LACTATED RINGERS 1,000 ML IV SCH; -LIDOCAINE 1% (10MG/ML) FOR IV START INTRADERMA PRN; -ONDANSETRON 4 MG/2 ML VIAL IVP PRN; +droPERidol 5 MG/2 ML VIAL IVP ONE
[2024-02-16] MEDS: LACTATED RINGERS 1,000 ML IV SCH (10:38)
[2024-02-16] MEDS: DEXAMETHASONE SOD PHOSPHATE 4 MG/ML 1 ML VIAL IV ONE (11:11)
[2024-02-16] MEDS: ONDANSETRON 4 MG/2 ML VIAL IVP ONE (11:11)
[2024-02-16] MEDS ORDERED: MIDAZOLAM 2 MG/2 ML VIAL ONE (13:11)
[2024-02-16] MEDS ORDERED: SUCCINYLCHOLINE CHLORIDE 200 MG/10 ML VIAL IV ONE (13:11)
[2024-02-16] MEDS ORDERED: ePHEDrine 50 MG/ML 1 ML VIAL ONE (13:11)
[2024-02-16] MEDS ORDERED: FUROSEMIDE 10 MG/ML 2 ML VIAL ONE (13:11)
[2024-02-16] MEDS ORDERED: fentaNYL (PF) 50 MCG/ML 2 ML AMP ONE (13:11)
[2024-02-16] MEDS ORDERED: LIDOCAINE 1% INJ 10MG/ML (20 ML MDV) ONE (13:11)
[2024-02-16] MEDS ORDERED: PROPOFOL 10 MG/ML 20 ML VIAL IV ONE (13:11)
[2024-02-16] MEDS ORDERED: GLYCOPYRROLATE 0.2 MG/ML 2 ML VIAL ONE (13:11)
[2024-02-16 15:45] VITALS: TEMP 97.5
[2024-02-16 16:18] VITALS: RESP 18
[2024-02-16 16:52] VITALS: BP 123/86; PULSE 88
--- NOTE | 2024-02-16 16:52 | P.OP ---
Date of Procedure: 02/16/24 Preoperative Diagnosis: BPH with Obstruction Postoperative Diagnosis: Same Procedure(s) Performed: Cystoscopy, bipolar transurethral resection of the prostate (TURP) Anesthesia: SERGIO Surgeon: Porter Garcia Estimated Blood Loss (ml): 30 IV fluids (ml): 1,200 Pathology: other (Prostate chips) Condition: stable Disposition: PACU Indications for Procedure: The patient is an 78-year-old white male with a history of BPH. He was placed on tamsulosin in early 2019. This was changed to alfuzosin in early 2021, and finasteride was prescribed and January 2023 to be taken along with the alfuzosin. However, the patient continues to experience a diminished urinary stream, nocturia, and urinary urgency. He empties his bladder incompletely. He was offered the options of continued medical therapy versus a minimally invasive surgery such as UroLift versus a transurethral resection of prostate (TURP). The pros and cons of each were reviewed in detail, and the patient has elected to undergo the latter. Operative Findings: Bilobar BPH Description of Procedure: The patient was taken in the operating room and placed in the dorsolithotomy position. The external genitalia was prepped and draped sterilely. The 25- [place] ACMI resectoscope sheath was introduced into the bladder. The bladder was inspected. Both ureteral orifices were of normal anatomic location and configuration, and clear urine effluxed from both. No tumors or foreign bodies were seen. Examination of the prostate revealed complete obstruction with a bilobar configuration and a high median bar. Using the bipolar cutting loop, th e floor of the prostate was resected up to the verumontanum. The lateral lobes were then resected down to the surgical capsule. Next, the anterior tissue was resected. Care was taken to preserve the vesical neck fibers, other than an incision at 6:00. The residual apical tissue was then carefully resected, with care taken to avoid injury to the external urinary sphincter. The resection was carried down to the surgical capsule in all 4 quadrants. The prostatic fossa was then carefully examined, and any areas of bleeding were controlled with electrocautery. Excellent hemostasis was attained. The resectoscope was withdrawn into the bulbous urethra. The external urinary sphincter remained intact. The prostatic fossa was open. Prostate chips were removed from the bladder were saved and sent for pathologic examination. The resectoscope was removed, and a 20 [place] catheter was placed. The return was essentially clear. The patient tolerated the procedure well was taken to the recovery room in stable condition.
== END 2024-02-16 17:00 | disposition home or self-care (01) ==
LOC: OR 10:13
PROVIDERS: ATTEND Urology
DX: C61 Malignant neoplasm of prostate (principal); N40.1 Benign prostatic hyperplasia with lower urinary tract symptoms; N13.8 Other obstructive and reflux uropathy; M19.90 Unspecified osteoarthritis, unspecified site; K21.9 Gastro-esophageal reflux disease without esophagitis; I50.9 Heart failure, unspecified; H91.90 Unspecified hearing loss, unspecified ear; I48.91 Unspecified atrial fibrillation; F31.9 Bipolar disorder, unspecified; G62.9 Polyneuropathy, unspecified; Z85.828 Personal history of other malignant neoplasm of skin; Z87.891 Personal history of nicotine dependence; Z88.5 Allergy status to narcotic agent; Z95.810 Presence of automatic (implantable) cardiac defibrillator; Z79.82 Long term (current) use of aspirin; Z79.899 Other long term (current) drug therapy; Z88.8 Allergy status to other drugs, medicaments and biological substances
CPT/HCPCS: 52601; 88305; J2250; J0330; J1100; J1940; J0690; J2405; J2001; J3010; J2704

== ENCOUNTER → 2024-04-30 | Outpatient (CLI) | payer MEDICARE | END | disposition home or self-care (01) | LOC: LABWHC1 12:45 | PROVIDERS: ATTEND Urology | DX: C61 Malignant neoplasm of prostate (principal) | CPT/HCPCS: 36415; 84153 ==

== ENCOUNTER → 2024-06-28 | Outpatient (CLI) | payer MEDICARE ==
[2024-06-29 02:42] LABS: Basophils # (A) 0.03 X 10*3/uL (0.00-0.10); Basophils % (A) 0.5 %; Eosinophils # (A) 0.32 X 10*3/uL (0.04-0.35); Eosinophils % (A) 5.1 %; HCT 41.8 % (39.6-50.0); HGB 13.4 g/dL (13.0-17.0); Lymphocytes # (A) 1.83 X 10*3/uL (0.90-5.00); Lymphocytes % (A) 28.9 %; MCH 32.1 pg (27.0-32.0); MCHC 32.1 g/dL (32.0-37.0); Mean Platelet Volume 10.7 FL (9.5-12.2); Monocytes # (A) 0.72 X 10*3/uL (0.20-1.00); Monocytes % (A) 11.4 %; NRBC Per 100 WBC 0 X 10*3/uL (0.00-0.01); Neutrophils # (A) 3.42 X 10*3/uL (1.80-7.70); Neutrophils % (A) 53.9 %; Platelet Count 219 X 10*3/uL (140-440); RBC 4.18 X 10*6/uL (4.40-5.60); RDW 13.8 % (11.5-14.5); WBC 6.33 X 10*3/uL (4.50-10.00)
[2024-06-29 02:53] LABS: ALT 11 U/L (10-49); AST 17 U/L (14-35); Albumin 4.2 g/dL (3.8-4.9); Albumin/Globulin Ratio 1.68 Ratio (1.60-3.17); Alkaline Phosphatase 83 U/L (41-126); BUN/Creat Ratio 15.54 Ratio (12.00-20.00); Blood Urea Nitrogen 20.2 mg/dL (9.0-27.0); Calcium 9.3 mg/dL (8.7-10.3); Carbon Dioxide 26.5 mmol/L (21.6-31.8); Chloride 104 mmol/L (96-109); Globulin 2.5 g/dL (1.6-3.3); Glucose 101 mg/dL (70-110); Potassium 5.2 mmol/L (3.5-5.5); Sodium 141 mmol/L (135-145); Total Bilirubin 0.3 mg/dL (0.3-1.2); Total Protein 6.7 g/dL (6.2-8.2)
== END | disposition home or self-care (01) ==
LOC: LABWHC1 15:01
PROVIDERS: ATTEND Family Medicine
DX: Z00.00 Encounter for general adult medical examination without abnormal findings (principal); I48.0 Paroxysmal atrial fibrillation; Z95.810 Presence of automatic (implantable) cardiac defibrillator
CPT/HCPCS: 36415; 80053; 84630; 85025

== ENCOUNTER → 2025-06-26 | Outpatient (CLI) | payer MEDICARE | END | disposition home or self-care (01) | LOC: LABWHC1 12:55 | PROVIDERS: ATTEND Urology | DX: C61 Malignant neoplasm of prostate (principal) | CPT/HCPCS: 36415; 84153 ==